=== PATIENT | female | born 1935 | race Caucasian/White ===

== ENCOUNTER 2018-03-14 15:17 | Emergency (ER) | payer OTHER, BC ==
[2018-03-14] MEDS ORDERED: LET GEL TOPICAL 1 EA SYR TP ONE ×2 (15:49→15:58)
--- NOTE | 2018-03-14 15:59 | EDPHY ---
H & P Time Seen by Provider: 03/14/18 15:37 HPI/ROS: This patient presents with minor injuries from a fall shortly prior to arrival. Her brought her in for evaluation and the patient explains that she has poor balance at baseline. She [place] quickly [place] bags in the [place] having traveled from [place] for [employer] graduation and in the quick turn lost her balance and fell sustaining a laceration/abrasion to her right elbow and to bilateral lower extremities. She states that the pain in her elbow is 1/10 intensity and the leg abrasions are 2/10 intensity. She otherwise feels well and denies any other acute symptoms. She explains that she falls frequently and this fall was typical for her. She does not feel that she has any increase in her baseline unsteadiness on her feet. ROS: Constitutional: No generalized fatigue or fevers recently. HEENT: No facial injuries today. She has mild coryza she attributes to seasonal allergies. No sinus pain or other complaints. No ear pain. No tinnitus. Pulmonary: No shortness of breath cough or other complaints. No chest wall injuries from the fall Musculoskeletal: No midline neck or back pain from the fall. No bony pain in her extremities. Cardiovascular: No chest pain or heart palpitations. No lightheadedness. GI: She has diminished appetite lately but this is baseline for her. No abdominal pain since the fall. : No recent urinary symptoms or hematuria. Integumentary: Injuries as noted in HPI. 10 point review symptoms is otherwise negative Smoking Status: Former smoker Physical Exam: General Appearance: Pleasant petite 82-year-old female Alert, no distress. Eyes: Pupils equal and round no pallor or injection. ENT, -atraumatic. Mouth: Mucous membranes moist. Neck: No midline tenderness Back: No midline tenderness Respiratory: There are no retractions, lungs are clear to auscultation. No chest wall tenderness Cardiovascular: Regular rate and rhythm. No murmur gallop rub. No peripheral edema. Gastrointestinal: Abdomen is soft and nontender, no masses, bowel sounds normal. Neurological: GCS 15. No focal sensory or motor deficits. No significant vertiginous symptoms with head movement. Skin: Warm and dry, no rashes. Musculoskeletal: Neck is supple nontender. Extremities are symmetrical, full range of motion. Right elbow: Patient has abrasion/laceration to the olecranon there is a full thickness laceration that is cross shaped, 1.7 cm in length, cross shaped with superficial overlying abrasion. The olecranon bursa appears to be intact underlying this. No foreign bodies. No deeper structures injured. No significant underlying bony tenderness. She maintains full range of motion without pain including pronation supination versus resistance. Lower extremities: Skin abrasions but no bony tenderness to tibia or fibula. No evidence of knee injuries. Psychiatric: Mood and affect are normal DIFFERENTIAL DIAGNOSIS: After history and physical exam differential diagnosis was considered for abrasions, elbow laceration, contusions Constitutional: Initial Vital Signs Temperature (C) 36.7 C 03/14/18 15:37 Heart Rate 62 03/14/18 15:37 Respiratory Rate 16 03/14/18 15:37 Blood Pressure 186/85 H 03/14/18 15:37 O2 Sat (%) 96 03/14/18 15:37 O2 Delivery Mode Room Air Allergies/Adverse Reactions: ciprofloxacin [From Cipro] Allergy (Verified 03/14/18 15:35) Sulfa (Sulfonamide Antibiotics) Allergy (Verified 03/14/18 15:35) Home Medications: Medication Instructions Recorded Celebrex 03/14/18 Levothyroxine 03/14/18 Lipitor 03/14/18 Losartan Potassium 03/14/18 Prolia 03/14/18 traMADol 03/14/18 MDM/Departure - MDM Procedures: The wound is 1.7 cm in length The wound was copiously irrigated with saline. The wound was explored for foreign bodies and none were found. The wound was prepped and draped in the normal sterile fashion. The wound was anesthetized using a 50 50 mix of 0.5% Marcaine and 1% plain lidocaine. The edges were reapproximated using 4 0 Prolene-4 interrupted sutures and 2 running sutures with good hemostasis and cosmesis. The patient tolerated the procedure well. No complications. Medications Given: Discontinued Medications Tetracaine/Epinephrine/Lidocaine (Let Gel Topical) 1 ea TP EDNOW ONE Stop: 03/14/18 15:50 Last Admin: 03/14/18 15:54 Dose: 1 ea Let solution to abrasions and elbow laceration ED Course/Re-evaluation: Discussion: Pleasant 82-year-old female with elbow laceration and leg abrasions without evidence of bony injury, closed head injury, neck spine or other extremity injuries. Since that she is in her usual state of health which entails poor balance and frequent falls. I do not appreciate evidence of stroke , vertigo or other acute medical conditions today. Patient was counseled in wound care and understands need to return emergency department for any significant worsening of symptoms despite the treatment plan. - Depart Disposition: Home, Routine, Self-Care Clinical Impression: Elbow laceration Qualifiers: Encounter type: initial encounter Laterality: right Qualified Code(s): S51.011A - Laceration without foreign body of right elbow, initial encounter Leg abrasion Qualifiers: Encounter type: initial encounter Laterality: unspecified laterality Qualified Code(s): S80.819A - Abrasion, unspecified lower leg, initial encounter Condition: Good Instructions: Care For Your Stitches (ED), Abrasion (ED) Additional Instructions: Diagnosis: Right elbow laceration 2. Leg abrasions Plan: Keep the elbow wound clean and dry for the next 2 days and then clean with warm soapy water daily. Sutures out in 12 days. Keep leg dressings in place for the next few days and then gently remove, clean the wounds and reapply dressings until the wound heals. Tylenol for pain if needed Return to the emergency department if he developed bleeding, redness or other concerns. Referrals: NONE *PRIMARY CARE P,. [Primary Care Provider] - As per Instructions
[2018-03-14 18:35] VITALS: BP 174/82
== END 2018-03-14 17:35 | disposition home or self-care (01) ==
LOC: CED 15:17
PROC: 0HQDXZZ Repair Right Lower Arm Skin, External Approach (ICD-10-PCS; principal; 2018-03-14)
DX: S51.011A Laceration without foreign body of right elbow, initial encounter (principal); S80.819A Abrasion, unspecified lower leg, initial encounter; Z87.891 Personal history of nicotine dependence; W19.XXXA Unspecified fall, initial encounter